=== PATIENT | male | born 1995 | race African-American/Black ===

== ENCOUNTER 2018-01-15 11:52 | Inpatient (IN) ==
[2018-01-15] MEDS ORDERED: ONDANSETRON 4 MG/2 ML VIAL IV STA (12:11)
[2018-01-15 12:40] LABS: Basophils % 0.1 % (0.0-0.8); Eosinophils % 0.1 % (0.00-10.9); Hemoglobin 15.4 GM/DL (14.0-18.0); Immature Granulocytes % 0.4 %; Immature Granulocytes Absolute 0.05 #; Lymphocytes # 0.4 10*3/uL (1.4-4.0); Lymphocytes % 2.8 % (21.2-54.2); Mean Corpuscular Hemoglobin 31 PG (27-34); Mean Corpuscular Volume 87.8 FL (87-102); Mean Platelet Volume 10.6 FL (9.6-12.0); Monocytes # 0.8 10*3/uL (0.11-0.8); Monocytes % 5.4 % (1.7-12.7); Neutrophils % 91.2 % (38.7-73.9); Platelet Count 186 T/CUMM (130-400); Red Blood Count 5.01 MC/CUMM (3.8-5.5); White Blood Count 14.2 T/CUMM (4-12)
[2018-01-15 12:57] LABS: Albumin 4.5 G/DL (3.4-5.0); Osmolality,Calculated 280.3 MOS/KG (273-304); Potassium 4.8 MMOL/L (3.5-5.1); Total Protein 8.4 G/DL (6.4-8.3)
[2018-01-15 15:28] LABS: Apearance,Urine CLEAR (Clear); Bilirubin,Urine Negative (Negative); Blood, Urine Negative (Negative); Glucose,Urine (UA) Negative (Negative); Ketones,Urine Negative (Negative); Mucus,Urine Occasional /LPF (Occasional); Nitrite,Urine Negative (Negative); Protein,Urine Negative; RBC,Urine <1 /HPF (0-4); Urine Color Yellow (Yellow); Urine Specific Gravity 1.014 (1.001-1.035); Urine Urobilinogen < 2.0 EU/DL (0.2-1.0); WBC,Urine <1 /HPF (0-6)
[2018-01-15 16:17] LABS: Band Neutrophils 6 % (0-10); Lymphocytes 5 % (20-55); Segmented Neutrophils 82 % (50-85); Total Cells Counted 100
[2018-01-15 16:18] LABS: Platelet Estimate Normal
[2018-01-15] MEDS ORDERED: MORPHINE 4 MG/1 ML VIAL IV PRN (18:45)
[2018-01-15] MEDS ORDERED: ACETAMINOPHEN 325 MG TABLET PO PRN (18:45)
[2018-01-15] MEDS ORDERED: ONDANSETRON 4 MG/2 ML VIAL IV PRN (18:45)
[2018-01-15] MEDS: LACTATED RINGERS 1,000 ML IV SCH (19:34)
[2018-01-15] MEDS ORDERED: CIPROFLOXACIN INJ 400 MG in PREMIX 1 EACH IV SCH (20:00)
[2018-01-15] MEDS: CIPROFLOXACIN INJ 400 MG in PREMIX 1 EACH IV SCH (21:24)
[2018-01-15] MEDS: metroNIDAZOLE INJ 500 MG in PREMIX 1 EACH IV SCH (23:39)
[2018-01-16] MEDS: metroNIDAZOLE INJ 500 MG in PREMIX 1 EACH IV SCH ×3 (06:07→23:06)
[2018-01-16] MEDS: CIPROFLOXACIN INJ 400 MG in PREMIX 1 EACH IV SCH ×2 (08:41→20:30)
[2018-01-16] MEDS: LACTATED RINGERS 1,000 ML IV SCH ×3 (08:43→20:27)
[2018-01-16] MEDS: PANTOPRAZOLE 40 MG TABLET PO SCH (08:45)
[2018-01-16 08:56] LABS: Calcium 8.5 MG/DL (8.5-10.1); Osmolality,Calculated 280.1 MOS/KG (273-304); Potassium 3.7 MMOL/L (3.5-5.1)
[2018-01-16] MEDS: ENOXAPARIN 40 MG/0.4 ML SYRINGE SUBCUT SCH (11:09)
[2018-01-16] MEDS ORDERED: DOCUSATE SODIUM 100 MG CAPSULE PO PRN (19:06)
[2018-01-17 04:49] LABS: Basophils % 0.4 % (0.0-0.8); Eosinophils # 0.1 10*3/uL (0.0-0.87); Eosinophils % 2.1 % (0.00-10.9); Hematocrit 39.3 VOL% (42.0-52.0); Hemoglobin 13.3 GM/DL (14.0-18.0); Immature Granulocytes % 0.2 %; Immature Granulocytes Absolute 0.01 #; Lymphocytes # 1.3 10*3/uL (1.4-4.0); Lymphocytes % 28.2 % (21.2-54.2); Mean Corpuscular HGB Conc 33.8 GM/DL (32-36); Mean Corpuscular Hemoglobin 30 PG (27-34); Mean Corpuscular Volume 89.9 FL (87-102); Mean Platelet Volume 10.7 FL (9.6-12.0); Monocytes # 0.5 10*3/uL (0.11-0.8); Monocytes % 10.4 % (1.7-12.7); Neutrophils # 2.8 10*3/uL (1.4-7.4); Neutrophils % 58.7 % (38.7-73.9); Platelet Count 179 T/CUMM (130-400); Red Blood Count 4.37 MC/CUMM (3.8-5.5); Red Cell Distribution Width 13.5 % (9.3-17.3); White Blood Count 4.7 T/CUMM (4-12)
[2018-01-17] MEDS: LACTATED RINGERS 1,000 ML IV SCH ×3 (06:02→17:55)
[2018-01-17] MEDS: metroNIDAZOLE INJ 500 MG in PREMIX 1 EACH IV SCH ×2 (06:02→15:58)
[2018-01-17] MEDS: PANTOPRAZOLE 40 MG TABLET PO SCH (09:32)
[2018-01-17] MEDS: ENOXAPARIN 40 MG/0.4 ML SYRINGE SUBCUT SCH (09:32)
[2018-01-17] MEDS: CIPROFLOXACIN INJ 400 MG in PREMIX 1 EACH IV SCH (09:32)
[2018-01-17] MEDS: CIPROFLOXACIN 500 MG TABLET PO SCH (21:03)
[2018-01-17] MEDS: metroNIDAZOLE 500 MG TABLET PO SCH (22:54)
[2018-01-18] MEDS: LACTATED RINGERS 1,000 ML IV SCH ×2 (02:54→11:58)
[2018-01-18 05:17] LABS: Basophils % 0.5 % (0.0-0.8); Eosinophils # 0.1 10*3/uL (0.0-0.87); Eosinophils % 2.2 % (0.00-10.9); Hematocrit 37.4 VOL% (42.0-52.0); Hemoglobin 13.1 GM/DL (14.0-18.0); Lymphocytes # 1.5 10*3/uL (1.4-4.0); Mean Corpuscular Hemoglobin 31 PG (27-34); Mean Corpuscular Volume 87.6 FL (87-102); Mean Platelet Volume 11.2 FL (9.6-12.0); Monocytes # 0.5 10*3/uL (0.11-0.8); Monocytes % 12.3 % (1.7-12.7); Platelet Count 167 T/CUMM (130-400); Red Blood Count 4.27 MC/CUMM (3.8-5.5); Red Cell Distribution Width 13.6 % (9.3-17.3); White Blood Count 4.1 T/CUMM (4-12)
[2018-01-18 05:39] LABS: Calcium 8.4 MG/DL (8.5-10.1); Osmolality,Calculated 281.1 MOS/KG (273-304); Potassium 3.8 MMOL/L (3.5-5.1)
[2018-01-18] MEDS: metroNIDAZOLE 500 MG TABLET PO SCH ×2 (05:48→14:45)
[2018-01-18] MEDS: CIPROFLOXACIN 500 MG TABLET PO SCH (10:11)
[2018-01-18] MEDS: PANTOPRAZOLE 40 MG TABLET PO SCH (10:12)
[2018-01-18] MEDS: ENOXAPARIN 40 MG/0.4 ML SYRINGE SUBCUT SCH (10:12)
[2018-01-18 20:59] VITALS: BP 125/62
== END 2018-01-18 14:50 | DRG 392 ==
LOC: N.ED 11:52 → N.EDINP 16:06 → N.3W 18:35
PROVIDERS: ADMIT Surgery; ATTEND Surgery